=== PATIENT | female | born 2000 | race Caucasian/White ===

== ENCOUNTER → 2020-09-08 | Outpatient (CLI) | payer BC | END | disposition home or self-care (01) | LOC: CFH 12:11 | PROVIDERS: ATTEND Family Medicine | DX: R10.11 Right upper quadrant pain (principal); R10.9 Unspecified abdominal pain | CPT/HCPCS: 76700 ==

== ENCOUNTER 2020-09-16 10:53 | Inpatient (IN) | payer BC ==
[~2020-09-16] VITALS: Ht 160 cm; Wt 53.3 kg
--- NOTE | 2020-09-16 11:03 | NUR ---
INTINAL CONTACT WITH PT: PT W/ C/O DIFFUSE ABD PAIN WITH N/V/D FOR TWO WEEKS. US LAST WEEK HERE, PT STATES NORMAL. STEADY GAIT TO BATHROOM TO PROVIDE UA. POSTIONED TO COMFORT IN BED. ATTACHED TO MONITORS. VSS. SNELL. MOTHER AT BEDSIDE. DR. THACKER AT BEDSIDE FOR EVALUATION.
[2020-09-16 11:33] LABS: MEAN CORPUSCULAR HGB CONC 34.7 g/dL (32.4-35.8); MEAN PLATELET VOLUME 8.2 fL (7.4-10.4); PLATELET COUNT 223 x10^3/uL (130-400); RED BLOOD COUNT 4.61 x10^6/uL (3.82-5.3); RED CELL DISTRIBUTION WIDTH 13.1 % (9.6-15.2)
[2020-09-16 11:35] LABS: MICROSCOPIC INDICATED
[2020-09-16 11:43] LABS: ALBUMIN 3.7 g/dL (3.4-5.0); ANION GAP 8 mmol/L (5-15); CALCIUM 8.9 mg/dL (8.5-10.1); CHLORIDE 108 mmol/L (98-107)
[2020-09-16 11:47] LABS: BAND#(MANUAL) 3.04 x10^3/uL; BANDS%(MANUAL) 31 % (0-7); LYMPH#(MANUAL) 0.59 x10^3/uL (1-3.4); LYMPHS% (MANUAL) 6 % (22-44); MONOS% (MANUAL) 2 % (2-9); SEG#(MANUAL) 5.98 x10^3/uL (1.8-6.8); SEGS% (MANUAL) 61 % (42-75)
[2020-09-16 11:48] LABS: <PLATELET ESTIMATE> ADEQUATE; <PLT MORPHOLOGY> NORMAL PLT MORPH; <RBC MORPHOLOGY> NORMAL
[2020-09-16 11:49] LABS: ALANINE AMINOTRANSFERASE 21 U/L (12-78); ALKALINE PHOSPHATASE 69 U/L (45-117); BILIRUBIN,TOTAL 0.6 mg/dL (0.2-1.0); CREATININE 0.94 mg/dL (0.55-1.02); TOTAL PROTEIN 7.3 g/dL (6.4-8.2)
--- NOTE | 2020-09-16 12:02 | NUR ---
PT RESTING IN BED. NADN. VSS. AWAITING RECHECK. MOTHER AT BEDSIDE.
[2020-09-16] MEDS ORDERED: SODIUM CHLORIDE FLUSH 10ML SYR IVF ONE (12:30)
[2020-09-16] MEDS ORDERED: SODIUM CHLORIDE 0.9% 1,000ML IVBOLUS ONE (12:30)
--- NOTE | 2020-09-16 13:06 | NUR ---
PT STRAIGHT CATH PER ORDER. VSS. NADN
[2020-09-16 13:22] LABS: MICROSCOPIC INDICATED
--- NOTE | 2020-09-16 15:01 | NUR ---
RECEIVED REPORT FROM [facility]. [place] [facility] [place], NAD, NO NEEDS AT THIS TIME, CALL LIGHT WITHIN REACH, ISO PREC PLACED WHILE AWAITING STOOL RESULTS.
[2020-09-16 15:18] LABS: CLOSTRIDIUM DIFFICILE ANTIGEN POSITIVE; CLOSTRIDIUM DIFFICILE TOXIN NEGATIVE (Negative)
[2020-09-16] MEDS ORDERED: HYDROcodone/APAP 5/325 TABLET PO PRN (15:30)
[2020-09-16] MEDS ORDERED: ENALAPRILAT 1.25 MG/ML, 2ML IVPush PRN (15:30)
[2020-09-16] MEDS ORDERED: ONDANSETRON 2MG/ML, 2ML IVPush PRN (15:30)
[2020-09-16] MEDS ORDERED: ACETAMINOPHEN 325 MG TABLET PO PRN (15:30)
[2020-09-16] MEDS ORDERED: PROMETHAZINE 25 MG/ML, 1ML IM PRN (15:30)
[2020-09-16] MEDS ORDERED: MELATONIN 5 MG TABLET PO PRN (15:30)
--- NOTE | 2020-09-16 15:33 | NUR ---
Pt to be admitted to MEDICAL, room 369. Report called to [facility].
[2020-09-16 15:47] LABS: BASOPHILS % (AUTO) 0 % (0-1); EOSINOPHILS % (AUTO) 0 % (1-7); LYMPHOCYTES % (AUTO) 19 % (22-44); MEAN CORPUSCULAR HEMOGLOBIN 32.2 pg (27.0-34.8); MEAN CORPUSCULAR HGB CONC 34.8 g/dL (32.4-35.8); MEAN PLATELET VOLUME 7.7 fL (7.4-10.4); MONOCYTES % (AUTO) 9 % (2-9); NEUTROPHILS % (AUTO) 72 % (42-75); PLATELET COUNT 210 x10^3/uL (130-400); RED BLOOD COUNT 4.05 x10^6/uL (3.82-5.3); RED CELL DISTRIBUTION WIDTH 13.1 % (9.6-15.2)
[2020-09-16] MEDS: LACTATED RINGERS 1,000 ML IV SCH (15:47)
[2020-09-16 15:58] VITALS: BP 108/68
[2020-09-16] MEDS ORDERED: TRAZ-96 PO (16:04)
[2020-09-16] MEDS ORDERED: ESCI10TA97 PO (16:04)
[2020-09-16 16:38] LABS: HCT (SEDRATE) 37.6 % (34.6-47.8)
[2020-09-16 20:29] VITALS: BP 101/63
[2020-09-16] MEDS: TRAZODONE 50MG TABLET PO PRN (20:59)
[2020-09-17 01:08] VITALS: BP 112/67
[2020-09-17] MEDS: LACTATED RINGERS 1,000 ML IV SCH ×3 (01:29→20:55)
[2020-09-17 06:39] LABS: ALANINE AMINOTRANSFERASE 15 U/L (12-78); ALBUMIN 2.8 g/dL (3.4-5.0); ANION GAP 10 mmol/L (5-15); CALCIUM 8.2 mg/dL (8.5-10.1); CHLORIDE 113 mmol/L (98-107); CREATININE 0.66 mg/dL (0.55-1.02)
[2020-09-17 06:41] LABS: ALKALINE PHOSPHATASE 47 U/L (45-117); BILIRUBIN,TOTAL 0.4 mg/dL (0.2-1.0); TOTAL PROTEIN 5.5 g/dL (6.4-8.2)
[2020-09-17 06:48] VITALS: BP 100/61
[2020-09-17 10:18] LABS: CRYPTOSPORIDIUM ANTIGEN Negative (Negative)
[2020-09-17] MEDS ORDERED: POTASSIUM CHLORIDE 20 MEQ TAB.ER.PRT PO ONE (12:30)
[2020-09-17 13:09] VITALS: BP 129/90
[2020-09-17] MEDS: VANCOMYCIN 50 MG/ML ORAL SUSP PO SCH ×2 (14:23→19:13)
[2020-09-17 19:16] VITALS: BP 119/75
[2020-09-17] MEDS: TRAZODONE 50MG TABLET PO PRN (20:54)
[2020-09-18 01:12] VITALS: BP 101/58
[2020-09-18] MEDS: VANCOMYCIN 50 MG/ML ORAL SUSP PO SCH ×3 (01:22→14:21)
[2020-09-18] MEDS: LACTATED RINGERS 1,000 ML IV SCH (07:35)
[2020-09-18 07:47] VITALS: BP 120/70
[2020-09-18 12:54] VITALS: BP 110/67
[2020-09-18] MEDS ORDERED: VANC50SO3 PO (15:24)
== END 2020-09-18 17:56 | disposition home or self-care (01) | DRG 373 ==
LOC: ED 12:35 → EDIP 14:45 → 3N 15:50
PROVIDERS: ADMIT Hospitalist; ATTEND Family Medicine
PROC: 0T9B70Z Drainage of Bladder with Drainage Device, Via Natural or Artificial Opening (ICD-10-PCS; principal; 2020-09-16)
DX: A04.72 Enterocolitis due to Clostridium difficile, not specified as recurrent (principal); T36.1X5A Adverse effect of cephalosporins and other beta-lactam antibiotics, initial encounter; Z20.822 Contact with and (suspected) exposure to COVID-19; F12.90 Cannabis use, unspecified, uncomplicated; F41.1 Generalized anxiety disorder; K59.00 Constipation, unspecified
CPT/HCPCS: 36415; 74021; 89055; J3370; 74177; 80053; 81001; 83690; 83735; 83993; 84100; 84703; 85025; 85651; 87077; 87086; 87324; 87328; 87329; 87493; 96361; 96374; 99285; G0378; J2405; U0005; J7030; J7120; U0003